=== PATIENT | male | born 1995 | race Caucasian/White ===

== ENCOUNTER 2016-08-13 10:03 | Inpatient (IN) | payer OTHER ==
[2016-08-13] MEDS ORDERED: NS 1,000 ML IV ONE (10:22)
[2016-08-13 10:36] LABS: % IMMATURE GRANULYOCYTES 0.2 % (0.0-1.1); ABSOLUTE IMMATURE GRANULOCYTES 0.02 10^3/uL (0.00-0.10); ADD DIFF? NO; ADD MORPH? NO; ADD SCAN? NO; ATYPICAL LYMPHOCYTE FLAG 0 (0-99); FRAGMENT RBC FLAG 0 (0-99); HEMATOCRIT 47.2 % (40.0-51.0); HEMOGLOBIN 16.7 g/dL (13.7-17.5); LEFT SHIFT FLG 0 (0-99); LIPEMIA HEMOLYSIS FLAG 90 (0-99); MEAN CELL HEMOGLOBIN 29.4 pg (27.9-34.1); MEAN CELL HEMOGLOBIN CONCENTR. 35.4 g/dL (32.4-36.7); MEAN CELL VOLUME 83.1 fL (81.5-99.8); MEAN PLATELET VOLUME 11.6 fL (8.7-11.7); PLATELET CLUMPS FLAG 10 (0-99); PLATELET COUNT 323 10^3/uL (150-400); RED BLOOD CELL COUNT 5.68 10^6/uL (4.40-6.38); RED CELL DISTRIBUTION WIDTH 12.5 % (11.5-15.2)
[2016-08-13 10:54] LABS: ALANINE AMINOTRANSFERASE 31 IU/L (21-72); ALBUMIN 4.7 g/dL (3.5-5.0); ALKALINE PHOSPHATASE 58 IU/L (38-126); ANION GAP 13 mEq/L (8-16); ASPARTATE AMINOTRANSFERASE 21 IU/L (17-59); BILIRUBIN,TOTAL 0.8 mg/dL (0.1-1.4); BILIRUBIN-CONJUGATED 0.4 mg/dL (0.0-0.5); BILIRUBIN-UNCONJUGATED 0.4 mg/dL (0.0-1.1); CALCIUM 10.2 mg/dL (8.5-10.4); CARBON DIOXIDE 23 mEq/l (22-31); CHLORIDE 106 mEq/L (97-110); CREATININE 0.8 mg/dL (0.7-1.3); GLOMERULAR FILTRATION RATE > 60; GLUCOSE 94 mg/dL (70-100); POTASSIUM 4.2 mEq/L (3.5-5.2); SODIUM 142 mEq/L (134-144); TOTAL PROTEIN 8.1 g/dL (6.3-8.2)
[2016-08-13] MEDS ORDERED: IOPAMIDOL (ISOVUE-300) 100 ML BTL IV ONE (11:19)
--- NOTE | 2016-08-13 13:01 | EDPHY ---
H & P Stated Complaint: rlq abd pain HPI/ROS: Chief complaint: Abdominal pain History of present illness: This is a 20-year-old male who presents to the emergency department for evaluation of abdominal pain. Patient reports the onset of symptoms this morning. He states initially had pain around his belly button. The pain has now moved to the right lower quadrant. He denies precipitating factors. He denies alleviating factors. He denies other associated signs or symptoms including no fevers, no nausea, vomiting or diarrhea, no urinary symptoms. Review of systems: A 10 point review of systems was obtained and other than described above was negative - Personal History Current Tetanus/Diphtheria Vaccine: Yes - Medical/Surgical History Hx Asthma: Yes Hx Chronic Respiratory Disease: No Hx Diabetes: No Hx Cardiac Disease: No Hx Renal Disease: No Hx Cirrhosis: No Hx Alcoholism: No Hx HIV/AIDS: No Hx Splenectomy or Spleen Trauma: No Other PMH: asthma/migraines - Social History Smoking Status: Current every day smoker - Physical Exam Exam: General Appearance: Alert, no distress. Eyes: Pupils equal and round no pallor or injection. ENT, Mouth: Mucous membranes moist. Respiratory: There are no retractions, lungs are clear to auscultation. Cardiovascular: Regular rate and rhythm. Gastrointestinal: Bowel sounds are normal. Abdomen is soft and nondistended. There is tenderness in the right lower quadrant at McBurney's point. There is some guarding. Neurological: Alert and oriented. Strength and sensation intact and symmetrical. Skin: Warm and dry, no rashes. Musculoskeletal: Neck is supple nontender. Extremities are symmetrical, full range of motion. Psychiatric: Patient is oriented X 3, there is no agitation. Constitutional: Initial Vital Signs Temperature (C) 36.4 C 08/13/16 10:06 Heart Rate 84 08/13/16 10:06 Respiratory Rate 18 08/13/16 10:06 Blood Pressure 104/68 08/13/16 10:06 O2 Sat (%) 96 08/13/16 10:06 O2 Delivery Mode Room Air Allergies/Adverse Reactions: cetyl alcohol [From Cetaphil] Allergy (Verified 08/13/16 10:05) paraben [From Cetaphil] Allergy (Verified 08/13/16 10:05) propylene glycol [From Cetaphil] Allergy (Verified 08/13/16 10:05) skin cleanser [From Cetaphil] Allergy (Verified 08/13/16 10:05) soap [From Cetaphil] Allergy (Verified 08/13/16 10:05) sodium lauryl sulfate [From Cetaphil] Allergy (Verified 08/13/16 10:05) stearyl alcohol [From Cetaphil] Allergy (Verified 08/13/16 10:05) Home Medications: Medication Instructions Recorded Albuterol 08/13/16 IMITREX 08/13/16 Medical Decision Making - Diagnostics Imaging: CT scan of the abdomen pelvis is concerning for an early appendicitis ED Course/Re-evaluation: Patient seen under the supervision of my secondary supervising physician Dr. Won Herrera. Patient presents to the emergency department for evaluation of abdominal pain. History is concerning for appendicitis. Physical exam does reveal McBurney's point tenderness. CT scan is concerning for a possible early appendicitis. I have consulted with surgery, Dr. Akhil Landeros, he has seen patient in the emergency department and is concerned this is appendicitis. He requested 1 g of Invanz and admission to their service. They plan on taking patient to surgery today for definitive care. This has been discussed with patient voiced understanding and agreement with it. Differential Diagnosis: Included but not limited to appendicitis, colitis, diverticulitis, bowel obstruction, gastroenteritis, - Data Points Laboratory Results: Laboratory Results 08/13/16 10:25 08/13/16 10:25 08/13/16 08/13/16 10:25 10:25 WBC 9.24 10^3/uL 10^3/uL (3.80-9.50) RBC 5.68 10^6/uL 10^6/uL (4.40-6.38) Hgb 16.7 g/dL g/dL (13.7-17.5) Hct 47.2 % % (40.0-51.0) MCV 83.1 fL fL (81.5-99.8) MCH 29.4 pg pg (27.9-34.1) MCHC 35.4 g/dL g/dL (32.4-36.7) RDW 12.5 % % (11.5-15.2) Plt Count 323 10^3/uL 10^3/uL (150-400) MPV 11.6 fL fL (8.7-11.7) Neut % (Auto) 71.3 % % (39.3-74.2) Lymph % (Auto) 18.2 % % (15.0-45.0) [place] % (Auto) 5.5 % % (4.5-13.0) Eos % (Auto) 4.0 % % (0.6-7.6) Baso % (Auto) 0.8 % % (0.3-1.7) Nucleat RBC Rel Count 0.0 % % (0.0-0.2) Absolute Neuts (auto) 6.59 10^3/uL H 10^3/uL (1.70-6.50) Absolute Lymphs (auto) 1.68 10^3/uL 10^3/uL (1.00-3.00) Absolute Monos (auto) 0.51 10^3/uL 10^3/uL (0.30-0.80) Absolute Eos (auto) 0.37 10^3/uL 10^3/uL (0.03-0.40) Absolute Basos (auto) 0.07 10^3/uL 10^3/uL (0.02-0.10) Absolute Nucleated RBC 0.00 10^3/uL 10^3/uL (0-0.01) Immature Gran % 0.2 % % (0.0-1.1) Immature Gran # 0.02 10^3/uL 10^3/uL (0.00-0.10) Sodium 142 mEq/L mEq/L (134-144) Potassium 4.2 mEq/L mEq/L (3.5-5.2) Chloride 106 mEq/L mEq/L (97-110) Carbon Dioxide 23 mEq/l mEq/l (22-31) Anion Gap 13 mEq/L mEq/L (8-16) BUN 12 mg/dL mg/dL (7-23) Creatinine 0.8 mg/dL mg/dL (0.7-1.3) Estimated GFR > 60 Glucose 94 mg/dL mg/dL (70-100) Calcium 10.2 mg/dL mg/dL (8.5-10.4) Total Bilirubin 0.8 mg/dL mg/dL (0.1-1.4) Conjugated Bilirubin 0.4 mg/dL mg/dL (0.0-0.5) Unconjugated Bilirubin 0.4 mg/dL mg/dL (0.0-1.1) AST 21 IU/L IU/L (17-59) ALT 31 IU/L IU/L (21-72) Alkaline Phosphatase 58 IU/L IU/L (38-126) Total Protein 8.1 g/dL g/dL (6.3-8.2) Albumin 4.7 g/dL g/dL (3.5-5.0) Lipase 43.0 IU/L IU/L (23-300) Medications Given: Discontinued Medications Sodium Chloride (Ns) 1,000 mls @ 0 mls/hr IV ONCE ONE PRN Reason: Wide Open Stop: 08/13/16 10:23 Last Admin: 08/13/16 10:30 Dose: 1,000 mls Departure - Departure Disposition: [facility] Inpatient Acute Clinical Impression: Acute appendicitis Qualifiers: Acute appendicitis type: unspecified acute appendicitis type Qualified Code(s) : K35.80 - Unspecified acute appendicitis Condition: Good Referrals: NONE *PRIMARY CARE P,. [Primary Care Provider] - As per Instructions
[2016-08-13] MEDS ORDERED: ERTAPENEM 1 GM in NS 100 ML IV ONE (13:08)
[2016-08-13] MEDS ORDERED: ACETAMINOPHEN 325 MG TAB PO PRN (13:25)
[2016-08-13] MEDS ORDERED: ONDANSETRON 4 MG/2 ML VIAL IVP PRN (13:25)
--- NOTE | 2016-08-13 13:49 | GHP ---
DATE OF ADMISSION: 08/13/2016 CHIEF COMPLAINT: Abdominal pain. HISTORY OF PRESENT ILLNESS: This is an otherwise healthy 20-year-old male who presents to the Emerg ency Department with the acute onset abdominal pain. Per the patient, he awoke this morning out of his usual routine with fairly excruciating periumbilical pain. He attempted to have a bowel movemen t which actually caused worsening of the pain. Over the course of the morning, the pain relocated f rom the periumbilical area to the right lower quadrant, where it has persisted. He describes the pa in as a burning sensation, worse with palpation, without radiation, and 8/10 in intensity. He state s that here in the Emergency Department, he has received some IV narcotics which has cause minimal r esolution of the pain. He did have chills earlier. Denies having any tamera fevers. He endorses be ing nauseated without any vomiting. PAST MEDICAL HISTORY: Asthma and migraines. PAST SURGICAL HISTORY: Adenoidectomy. CURRENT MEDICATIONS: Include albuterol inhaler and Imitrex intranasal as needed. REVIEW OF SYSTEMS: A full 10-point review was performed and unless explicitly stated above is other patricio negative. PHYSICAL EXAM: VITAL SIGNS: Temperature 36.4, blood pressure 121/72, heart rate 79, he is 96% on r oom air. GENERAL: He is alert and oriented, in no acute distress. CV: He has a regular rate and rhythm without any murmurs. LUNGS: Clear to auscultation bilaterally. ABDOMEN: Soft, nondistende d, tender to palpation in the right lower quadrant without rebound tenderness or guarding. No previ ous surgical scars. EXTREMITIES: Warm well perfused. LABS: White blood cell count of 9 with a left shift. CT scan shows equivocal periappendiceal stranding at the base, query early appendicitis. ASSESSMENT AND PLAN: A 20-year-old male with abdominal pain, likely appendicitis. I did explain to the patient that he does not have definitive appendicitis, but given his concerning and convincing history, along with his objective findings, I do feel that he probably has early appendicitis, and m y recommendation was laparoscopic appendectomy. After discussing the risks, benefits, and alternati ves, he wishes to proceed. He will receive 1 g of Invanz down in the Emergency Department. We will plan for urgent laparoscopic appendectomy as time permits. I did communicate these findings to his father via telephone and my original consultation. /[id number]/MODL
[2016-08-13] MEDS: HYDROCODONE/APAP 5/325 TAB PO PRN (17:25)
[2016-08-13] MEDS ORDERED: SKIN ADHESIVE (DERMABOND) 1 EACH TP ONE (19:22)
[2016-08-13] MEDS ORDERED: BUPIVACAINE/EPI 0.25% 30 ML SDV ONE (19:22)
[2016-08-13] MEDS ORDERED: PROPOFOL 200 MG/20 ML VIAL ONE (19:25)
[2016-08-13] MEDS ORDERED: fentaNYL 100 MCG/2 ML INJ ONE ×3 (19:25→20:55)
[2016-08-13] MEDS ORDERED: ROCURONIUM 50 MG/5 ML VIAL ONE (19:26)
[2016-08-13] MEDS ORDERED: LIDOCAINE 2% 5 ML SDV ONE (19:27)
[2016-08-13] MEDS ORDERED: MIDAZOLAM 2 MG/2 ML VIAL ONE ×2 (19:35→21:18)
[2016-08-13] MEDS ORDERED: DEXAMETHASONE 4 MG/ML VIAL ONE (19:47)
[2016-08-13] MEDS ORDERED: ONDANSETRON 4 MG/2 ML VIAL ONE ×2 (19:47→20:56)
[2016-08-13] MEDS ORDERED: SUGAMMADEX SODIUM 200 MG/2 ML VIAL IVP ONE (20:18)
[2016-08-13] MEDS ORDERED: HYDROmorphONE/DILAUDID 2 MG/ML INJ ONE (21:02)
[2016-08-13] MEDS ORDERED: ALBUTEROL 3 ML DEYVIAL ONE (21:07)
[2016-08-13] MEDS ORDERED: MEPERIDINE 25 MG/ML SYR ONE (21:12)
[2016-08-13] MEDS ORDERED: ACETAMINOPHEN 500 MG TAB ONE (21:33)
[2016-08-13] MEDS ORDERED: ACETAMINOPHEN 325 MG TAB ONE (21:40)
--- NOTE | 2016-08-13 21:58 | POSTOPPROG ---
Post Op Note Date of Operation: 08/13/16 Surgeon: Akhil Landeros Anesthesiologist: Rafael Anesthesia: GET(General Endotracheal) Pre-op Diagnosis: appendicitis Post-op Diagnosis: same Procedure: lap appy Findings: acute indurated appendix Inf/Abcess present in the surg proc area at time of surgery?: No EBL: Minimal Specimen(s): appendix
[2016-08-13] MEDS ORDERED: LORazepam 2 MG/ML INJ IVP PRN (22:22)
[2016-08-13] MEDS: HYDROmorphONE/DILAUDID 1 MG/ML SYR IVP PRN ×2 (22:38→23:16)
[2016-08-13] MEDS: D5W 1/2 NS W/ 20 KCl/L 1,000 ML IV SCH (22:44)
[2016-08-13] MEDS ORDERED: HALOPERIDOL LACT 5 MG/ML INJ IVP ONE (23:30)
[2016-08-13] MEDS ORDERED: HALOPERIDOL LACT 5 MG/ML INJ IV ONE (23:30)
[2016-08-14] MEDS: HYDROCODONE/APAP 5/325 TAB PO PRN ×3 (08:34→23:38)
[2016-08-14] MEDS: D5W 1/2 NS W/ 20 KCl/L 1,000 ML IV SCH ×2 (08:37→20:50)
--- NOTE | 2016-08-14 10:02 | SOAPPROG ---
SOAP Progress Note Assessment/Plan: Assessment/Plan: POD#1 s/p lap appy for acute appendicitis - Had panic attacks overnight, requires multiple benzos and haldol to relax. Was finally able to get some sleep. Endorses abd pain this AM but abdomen is soft and incisions are c/d/i. Will attempt to get OOB, encourage ambulation and reg diet. Poss home later today if makes progress, anticipate tomorrow given how he looks this AM tho 08/14/16 10:00 Subjective: Sleepy, having abd pain Objective: Vital Signs Temp Pulse Resp BP Pulse Ox 36.4 C 76 18 101/60 95 08/14/16 07:59 08/14/16 07:59 08/14/16 07:59 08/14/16 07:59 08/14/16 07:59 08/13/16 08/14/16 08/15/16 05:59 05:59 05:59 Intake Total 4030 Output Total 1105 Balance 2925 ICD10 Worksheet Patient Problems: Problems Problem Status Onset Acute appendicitis Acute
--- NOTE | 2016-08-14 12:08 | GOP ---
DATE OF OPERATION: 08/13/2016 SURGEON: Akhil Landeros MD CHIEF METER READER: None. ANESTHESIA: General endotracheal, per Dr. Hall. PREOPERATIVE DIAGNOSIS: Appendicitis. POSTOPERATIVE DIAGNOSIS: Appendicitis. PROCEDURE PERFORMED: Laparoscopic appendectomy. FINDINGS: Acute injected indurated appendix consistent with early appendicitis. SPECIMENS: Appendix. ESTIMATED BLOOD LOSS: 3 cc. DESCRIPTION OF PROCEDURE: The patient was greeted in the preoperative suite. Once again, risks, be nefits, and alternatives were discussed. The consent was signed. He was then brought back to the o perative suite, placed on the OR table in a supine position. After all anesthesia machines, includi ng SCDs, were on and functioning, [employer] time-out was performed. General endotra cheal anesthesia was then induced without incident. The patient's abdomen was then prepped and drap ed in typical sterile fashion. I entered the abdomen using the Veress needle in the left upper quad rant and achieved insufflation with CO2 to 15 mmHg without incident. I then entered the abdomen usi ng a 12 mm port using the Visiport technique infraumbilically. Once successfully in the abdomen, I placed 2 additional 5 mm trocars, one in the suprapubic, the other in the left lower quadrant, both under direct visualization. I then identified the appendix by tracing the tenia of the colon inferi samreen. The appendix did appear indurated and injected consistent with early appendicitis. I created a window at the base of the appendix using a [place] dissector. Once successfully created, I succ essfully amputated the appendix from the remainder of the GI tract with a single fire of the Endo-GI A blue load stapler. Once this was done, I in the same fashion identified the mesoappendix, and i ng a single fire of the white load this time, was successfully able to amputate the appendix from it s attachments. I placed it in an EndoCatch bag and then removed it via my midline port. I did have to use several hemoclips on the mesoappendix to obtain hemostasis. Once this was done, I irrigated the patient's abdomen with sterile normal saline, noting clear effluent from it. I then identified both of my staple lines which were clean, dry and intact. I interrogated the remainder of the sandrine ent's abdomen and found no other concerning findings. Local anesthesia was then instilled into all my port sites, which were removed under direct visualization. I closed my midline port with 0 Vicry l [id number] stitch, noting excellent fascial reapproximation. The remainder of the skin sites were closed with running 4-0 Monocryl over which Dermabond was placed. The patient was then extuba jeremy in the operative suite and taken to the PACU in satisfactory condition. SURGEON: Akhil Landeros MD COMPLICATIONS: None. DRAINS: None. COUNTS: All counts were reported as correct x2. /[id number]/MODL
[2016-08-14] MEDS: HYDROmorphONE/DILAUDID 1 MG/ML SYR IVP PRN ×2 (12:41→15:49)
[2016-08-14 20:23] VITALS: TEMP 98.1
[2016-08-15 07:27] VITALS: BP 124/74; PULSE 59; RESP 14; O2SAT 94
--- NOTE | 2016-08-15 08:22 | SOAPPROG ---
SOAP Progress Note Assessment/Plan: Assessment/Plan: 20 Y M s/p lap appy, nonperforated appendicitis. Doing well. Pain controlled. Tolerating diet. D/c to home/hotel with mom. F/u 2 weeks. 08/15/16 08:20 Subjective: Some incisional pain. No flatus, but no N/V. Eager for d/c Objective: Vital Signs Temp Pulse Resp BP Pulse Ox 36.7 C 59 L 14 124/74 H 94 08/15/16 07:26 08/15/16 07:26 08/15/16 07:26 08/15/16 07:26 08/15/16 07:26 08/14/16 08/15/16 08/16/16 05:59 05:59 05:59 Intake Total 4030 2994 Output Total 1105 Balance 2925 2994 alert, nad no wob, ctab rrr abd soft, appropriately ttp, inc cdi, +BS ICD10 Worksheet Patient Problems: Problems Problem Status Onset Acute appendicitis Acute
[2016-08-15] MEDS: HYDROCODONE/APAP 5/325 TAB PO PRN (08:37)
--- NOTE | 2016-08-15 11:16 | GDS ---
DISCHARGE DIAGNOSES: 1. Acute appendicitis. 2. Anxiety attack. OTHER DIAGNOSES: Include asthma, migraines, and history of adenoidectomy. PROCEDURES: Laparoscopic appendectomy. INTRAOPERATIVE FINDINGS: Patient was found to have an acute injected, indurated appendix, consisten t with early appendicitis. SPECIAL TESTS: CT scan on 08/13/2016 was equivocal for early appendicitis evidenced by periappendic eal stranding and trace free fluid in the low pelvis. Please see report for details. HOSPITAL COURSE: The patient is a 20-year-old male, who presented to the emergency department with acute onset of abdominal pain. He had an exam and imaging consistent with appendicitis. He was bro ught to the operating room by Dr. Landeros and underwent a laparoscopic appendectomy. The procedu re was uncomplicated, and he tolerated it well. The patient's postoperative course was complicated by an anxiety attack the night after surgery requ iring benzodiazepines and Haldol. He was eventually able to calm down, rest and sleep. His diet wa s advanced without event and his pain was well controlled. DISCHARGE INSTRUCTIONS: Patient was discharged to home with his mother who was visiting from [facility]. He was given instructions not to lift anything over 10-15 pounds. He was able to follow a regu lar diet. He was given a prescription for hydrocodone to be used as needed for pain control. He wa s also given permission to use ibuprofen or naproxen per label instructions. He is to follow up elvira Landeros in 2 weeks or sooner if he has any problems or concerns. Signs of ongoing infectio n were discussed. /[id number]/MODL
== END 2016-08-15 09:40 | disposition home or self-care (01) | DRG 343 ==
LOC: F1N 16:09
PROVIDERS: ADMIT Surgery; ATTEND Surgery
PROC: 0DTJ4ZZ Resection of Appendix, Percutaneous Endoscopic Approach (ICD-10-PCS; principal; 2016-08-13 19:39)
DX: K35.80 Unspecified acute appendicitis (principal); F41.9 Anxiety disorder, unspecified; J45.909 Unspecified asthma, uncomplicated; G43.909 Migraine, unspecified, not intractable, without status migrainosus; Z72.0 Tobacco use
CPT/HCPCS: J1100; J1170; J1335; J2250; J2405; J2704; J3010; Q9967